=== PATIENT | female | born 1945 | race Caucasian/White ===

== ENCOUNTER 2020-07-27 21:32 | Observation (INO) | payer MEDICARE ==
[2020-07-27] MEDS ORDERED: Ondansetron PF 4 MG/2 ML Vial IVP PRN (21:46)
[2020-07-27] MEDS ORDERED: Calcium Carbonate 500 MG ChewTAB PO PRN (21:46)
[2020-07-27] MEDS ORDERED: Guaifenesin DM 100-10/5 ML UDCUP PO PRN (21:46)
[2020-07-27] MEDS ORDERED: Senokot S 8.6-50 MG TAB PO PRN (21:46)
[2020-07-27] MEDS ORDERED: Zolpidem Tartrate 5 MG TAB PO PRN (21:46)
[2020-07-27] MEDS ORDERED: traMADol HCl 50 MG TAB PO PRN (21:48)
[2020-07-27] MEDS ORDERED: Cyclobenzaprine 10 MG TAB PO PRN (21:48)
[2020-07-27] MEDS ORDERED: Ventolin HFA Inhaler 60 PUFF INHALER INH PRN (21:48)
[2020-07-27 22:00] VITALS: BMI 25.8
[2020-07-27] MEDS ORDERED: Budesonide 0.5 MG/2 ML NEB INH SCH (22:00)
[2020-07-27] MEDS ORDERED: Famotidine/PF 20 mg/2ml Vial SLOW IVP SCH (22:00)
[2020-07-27] MEDS ORDERED: Sodium Chloride 0.9% (PF) 10 ML VIAL FS PRN (22:15)
[2020-07-27] MEDS ORDERED: Pantoprazole 40 MG VIAL IVP SCH (22:30)
[2020-07-28] MEDS: Levothyroxine Sodium 88 MCG TAB PO SCH (06:14)
[2020-07-28 06:21] LABS: Anion Gap 14 mmol/L (10-20); BUN (Urea Nitrogen) 16 mg/dL (9.8-20.1); Calc. Creatinine Clearance 79 mL/min (70-130); Calcium 8.7 mg/dL (7.8-10.44); Carbon Dioxide 25 mmol/L (23-31); Chloride 107 mmol/L (98-107); Glucose 82 mg/dL (83-110); Lipase 38 U/L (8-78); Sodium 142 mmol/L (136-145)
[2020-07-28] MEDS: Mometasone/Formoterol 60 PUFF AER INH SCH ×2 (06:50→19:20)
[2020-07-28] MEDS ORDERED: Famotidine/PF 20 mg/2ml Vial SLOW IVP SCH (09:00)
[2020-07-28] MEDS: Pantoprazole 40 MG VIAL IVP SCH ×2 (09:51→20:23)
[2020-07-28] MEDS: Aspirin 81 mg Enteric Coated Tablet PO SCH (09:51)
[2020-07-28] MEDS: Ascorbic Acid 500 mg Chewable Tablet PO SCH (09:51)
[2020-07-28] MEDS: Enoxaparin Sodium 40 MG/0.4 ML SYRINGE SC SCH (09:51)
[2020-07-28] MEDS ORDERED: Fluticasone Propionate Nasal Spray 16 gm Bottle NASAL SCH (13:30)
[2020-07-28 13:50] LABS: SARS-CoV-2 PCR by NAA Not Detected (NotDetected)
[2020-07-28] MEDS ORDERED: Ibuprofen 200 MG TAB PO PRN (20:00)
[2020-07-28] MEDS: Magnesium Oxide 400 MG TAB PO SCH (20:23)
[2020-07-29] MEDS: Levothyroxine Sodium 88 MCG TAB PO SCH (06:06)
[2020-07-29 07:46] VITALS: BP 108/67; TEMP 97.1
[2020-07-29] MEDS: Enoxaparin Sodium 40 MG/0.4 ML SYRINGE SC SCH (08:46)
[2020-07-29] MEDS: Ascorbic Acid 500 mg Chewable Tablet PO SCH (08:46)
[2020-07-29] MEDS: Aspirin 81 mg Enteric Coated Tablet PO SCH (08:46)
[2020-07-29] MEDS: Pantoprazole 40 MG VIAL IVP SCH (08:47)
[2020-07-29] MEDS: Magnesium Oxide 400 MG TAB PO SCH (08:47)
[2020-07-29] MEDS: Mometasone/Formoterol 60 PUFF AER INH SCH (08:59)
[2020-07-29] MEDS ORDERED: Fluticasone Propionate Nasal Spray 16 gm Bottle NASAL SCH (09:00)
== END 2020-07-29 13:53 | disposition home or self-care (01) ==
LOC: CSHTELE 21:32
PROVIDERS: ADMIT Internal Medicine; ATTEND Internal Medicine
DX: R07.89 Other chest pain (principal); K20.0 Eosinophilic esophagitis; K22.2 Esophageal obstruction; J45.909 Unspecified asthma, uncomplicated; E03.9 Hypothyroidism, unspecified; K90.0 Celiac disease; M79.7 Fibromyalgia; N18.2 Chronic kidney disease, stage 2 (mild); K21.9 Gastro-esophageal reflux disease without esophagitis; Z79.899 Other long term (current) drug therapy; Z20.822 Contact with and (suspected) exposure to COVID-19
CPT/HCPCS: 80048; 82785; 83690; 84484 ×2; 93306; 94640 ×2; 96372; 96374; 96376 ×2; G0378 ×3; U0003; U0005; 87635; C9113; J1650